=== PATIENT | female | born 1965 | race Caucasian/White ===

== ENCOUNTER 2024-08-24 10:27 | Day surgery (SDC) | payer BC ==
[2024-08-24] MEDS ORDERED: Versed 2 MG/2 ML Injection ONE (11:37)
[2024-08-24] MEDS ORDERED: propofoL IV ONE ×2 (11:37→11:59)
[2024-08-24 12:34] VITALS: PULSE 79; RESP 16; TEMP 97.9
[2024-08-24 12:43] VITALS: BP 133/73; O2SAT 98
--- NOTE | 2024-08-25 15:24 | OP ---
SURGERY DATE/TIME: 08/24/2024 [id number] PREOPERATIVE DIAGNOSES: 1) Abdominal pain. 2) Due for colon cancer screening. POSTOPERATIVE DIAGNOSES: 1) Gastritis with small erosions. 2) Gastric polyps. 3) Hemorrhoids. 4) Diverticulosis. PROCEDURES: 1) Esophagogastroduodenoscopy with biopsy and polypectomy. 2) Colonoscopy. SURGEON: James Pettit MD ANESTHESIA: IV anesthesia. CONDITION: Stable. COMPLICATIONS: None. SPECIMENS: 1) Duodenal biopsy. 2) Antral biopsy for H pylori. 3) Polyp x2, gastric. FINDINGS: Gastritis with punctate erosion x2. Gastric polyps consistent with fundic gland polyps. INDICATION: The patient is a 59-year-old female that presents having some abdominal pain. She had multiple episodes. Had one real bad episode, taken to the ER. She was on a PPI at one point but then is off the PPI. Does have some heartburn symptoms but now is not really having heartburn symptoms since she switched jobs but does have some intermittent abdominal pain still. Had a CT scan with a prominent appendix, but then, a repeat CT scan later which it was totally normal and then, did have a HIDA scan, which was normal. Is due for colonic cancer screening. DESCRIPTION OF PROCEDURE AND FINDINGS: Patient was brought to the endoscopy suite. Routinely positioned. IV anesthesia induced by Anesthesia. The gastroscope was inserted through the mouth, advanced to the third portion of the duodenum. Duodenum was normal in appearance. Biopsies were taken with the cold forceps. The stomach did have 2 punctate erosions. Relatively normal stomach otherwise, but there are multiple fundic gland-appearing polyps in the body of the stomach, all less than 1 cm. The largest are taken with a hot snare. Those are 8 mm in size, sent for pathology. Retroflexion, otherwise, normal. At the hiatus, there may be a 1 cm sliding hiatal hernia. No significant hiatal hernia. Esophagus is normal. Stomach is suctioned out, scope withdrawn. Digital rectal exam, externally there is some mild external hemorrhoids and some moderate internal hemorrhoid without thrombosis. The videoscope was inserted and advanced to the terminal ileum. The terminal ileum, appendiceal orifice and ileocecal valve were all photographed. The preparation was an Aronchick good preparation. Greater than 6 minute withdrawal time. The appendiceal orifice was normal in appearance. The colon has extensive diverticulosis in the sigmoid, descending colon. Retroflexion normal, otherwise. Patient tolerated the procedure well. RECOMMENDATIONS: I do recommend a daily PPI. We did prescribe Protonix 40 once daily for her here. It would be okay to do Nexium instead and then, will follow up in office but it seems most consistent with gastritis, peptic disease.
== END 2024-08-24 12:54 | disposition home or self-care (01) ==
LOC: SDC 10:27
PROVIDERS: ATTEND Surgery
DX: Z12.11 Encounter for screening for malignant neoplasm of colon (principal); R10.9 Unspecified abdominal pain; K29.70 Gastritis, unspecified, without bleeding; K31.7 Polyp of stomach and duodenum; K57.30 Diverticulosis of large intestine without perforation or abscess without bleeding; K44.9 Diaphragmatic hernia without obstruction or gangrene; K64.4 Residual hemorrhoidal skin tags; K64.8 Other hemorrhoids
CPT/HCPCS: J2250; J2704